=== PATIENT | male | born 1965 | race Caucasian/White ===

== ENCOUNTER 2018-09-27 07:04 | Day surgery (SDC) | payer OTHER ==
[2018-09-27] MEDS ORDERED: PROPOFOL 40 ML (08:30)
== END 2018-09-27 12:53 | disposition home or self-care (01) ==
LOC: GIL 07:04
DX: D12.5 Benign neoplasm of sigmoid colon (principal); K64.4 Residual hemorrhoidal skin tags
CPT/HCPCS: 45385; 88305